=== PATIENT | male | born 1955 | race Caucasian/White ===

== ENCOUNTER 2017-12-06 22:29 | Inpatient (IN) | payer OTHER ==
[2017-12-07] MEDS ORDERED: ONDANSETRON 4 MG INJ IV (07:30)
[2017-12-07] MEDS ORDERED: ACETAMINOPHEN 325 MG TAB PO (07:30)
[2017-12-07] MEDS ORDERED: NACL 0.9% 3 ML SYG IV (07:30)
[2017-12-07] MEDS ORDERED: ZOLPIDEM 5 MG TAB PO (07:30)
[2017-12-07] MEDS: ASPIRIN (EC) 81 MG TAB PO (08:15)
[2017-12-07] MEDS: PANTOPRAZOLE (EC) 40 MG TAB PO (08:15)
[2017-12-07] MEDS: CLOPIDOGREL 75 MG TAB PO (08:15)
[2017-12-07] MEDS: FLUTICASONE 0.05% 16 GM NAS SPRAY NASAL ×2 (08:17→10:26)
[2017-12-07] MEDS ORDERED: NON-FORMULARY/PATIENT OWN MED (Omeprazole* 40 MG) PO (09:00)
[2017-12-07 09:02] LABS: ADD MAN DIFF? NO
[2017-12-07 09:09] LABS: WHITE BLOOD COUNT 10.8 10^3/ul (4.8-10.8)
[2017-12-07 09:09] LABS: BASOPHILS % 0.2 % (0.0-2.0); EOSINOPHILS # 0.1 10^3/ul (0.0-0.5); EOSINOPHILS % 0.7 % (0.0-7.0); HEMATOCRIT 41.6 % (42.0-52.0); LYMPHOCYTES # 1.4 10^3/ul (0.8-2.9); LYMPHOCYTES % 13.3 % (15.0-51.0); MEAN CORPUSCULAR HEMOGLOBIN 30.6 pg (29.0-33.0); MEAN CORPUSCULAR HGB CONC 33.7 g/dl (32.0-37.0); MEAN CORPUSCULAR VOLUME 90.8 fl (82.0-101.0); MEAN PLATELET VOLUME 9.8 fl (7.4-10.4); MONOCYTE # 0.9 10^3/ul (0.3-0.9); MONOCYTES % 8.1 % (0.0-11.0); NEUTROPHIL # 8.4 10^3/ul (1.6-7.5); NEUTROPHILS % 77.4 % (39.0-77.0); PLATELET COUNT 190 10^3/UL (140-415); RED BLOOD COUNT 4.58 10^6/ul (4.70-6.10); RED CELL DISTRIBUTION WIDTH 12.4 % (11.5-14.5)
[2017-12-07 09:29] LABS: ALANINE AMINOTRANSFERASE 35 IU/L (13-69); ALBUMIN 3.7 g/dl (3.3-4.9); ALBUMIN/GLOBULIN RATIO 1.27; ALKALINE PHOSPHATASE 111 IU/L (42-121); ANION GAP 11 (8-16); ASPARTATE AMINO TRANSFERASE 29 IU/L (15-46); BILIRUBIN,INDIRECT 0.6 mg/dl (0-1.1); BILIRUBIN,TOTAL 0.6 mg/dl (0.2-1.3); BLOOD UREA NITROGEN 19 mg/dl (7-20); CALCIUM 8.7 mg/dl (8.4-10.2); CARBON DIOXIDE 22 mmol/L (21-31); CHLORIDE 109 mmol/L (97-110); CREATININE 1.39 mg/dl (0.61-1.24); GLUCOSE 106 mg/dl (70-220); SODIUM 138 mmol/L (135-144); TOTAL PROTEIN 6.6 g/dl (6.1-8.1)
[2017-12-07] MEDS: MELOXICAM 7.5 MG TAB PO (10:12)
[2017-12-07] MEDS: HYDROCODONE/APAP (5/325) TAB PO (10:29)
[2017-12-07] MEDS: CEFTRIAXONE 1 GM/50 ML (PMX) 50 ML IVPB ×2 (12:14→21:04)
[2017-12-07 13:25] LABS: ADD UMIC YES; UR ASCORBIC ACID NEGATIVE (NEGATIVE); UR BILIRUBIN (Dip) NEGATIVE (NEGATIVE); UR BLOOD (Dip) 2+ mg/dL (NEGATIVE); UR CLARITY CLEAR (CLEAR); UR COLOR YELLOW (YELLOW); UR GLUCOSE (Dip) NEGATIVE (NEGATIVE); UR KETONES (Dip) NEGATIVE (NEGATIVE); UR LEUKOCYTE ESTERASE (Dip) NEGATIVE Leu/ul (NEGATIVE); UR NITRITE (Dip) NEGATIVE (NEGATIVE); UR RBC 29 /HPF (0-5); UR SPECIFIC GRAVITY (Dip) 1.014 (1.003-1.030); UR TOTAL PROTEIN (Dip) NEGATIVE (NEGATIVE); UR UROBILINOGEN (Dip) NEGATIVE (NEGATIVE); UR WBC 9 /HPF (0-5)
[2017-12-07] MEDS: BACLOFEN 10 MG TAB PO ×2 (14:02→21:05)
[2017-12-07] MEDS: NICOTINE (21 MG/24 HR) PATCH TRANSDERM (14:02)
[2017-12-07] MEDS: SOD CHLORIDE 0.9% 1,000 ML IV ×3 (14:05→20:00)
[2017-12-07] MEDS: HYDROmorphONE 1 MG/ML SYG IV (14:08)
[2017-12-07] MEDS: TAMSULOSIN (SR) 0.4 MG CAP PO (21:06)
[2017-12-07] MEDS: ATORVASTATIN 40 MG TAB PO (21:06)
[2017-12-08] MEDS: SOD CHLORIDE 0.9% 1,000 ML IV (01:04)
[2017-12-08] MEDS: HYDROCODONE/APAP (5/325) TAB PO (01:04)
[2017-12-08 05:23] LABS: ADD MAN DIFF? NO
[2017-12-08 05:24] LABS: BASOPHILS % 0.2 % (0.0-2.0); EOSINOPHILS # 0.2 10^3/ul (0.0-0.5); EOSINOPHILS % 2.4 % (0.0-7.0); HEMATOCRIT 37.4 % (42.0-52.0); HEMOGLOBIN 12.3 g/dl (14.0-18.0); LYMPHOCYTES # 2.4 10^3/ul (0.8-2.9); LYMPHOCYTES % 27.8 % (15.0-51.0); MEAN CORPUSCULAR HEMOGLOBIN 30.2 pg (29.0-33.0); MEAN CORPUSCULAR HGB CONC 32.9 g/dl (32.0-37.0); MEAN CORPUSCULAR VOLUME 91.9 fl (82.0-101.0); MEAN PLATELET VOLUME 10.1 fl (7.4-10.4); MONOCYTE # 0.8 10^3/ul (0.3-0.9); NEUTROPHIL # 5.2 10^3/ul (1.6-7.5); NEUTROPHILS % 60.4 % (39.0-77.0); PLATELET COUNT 170 10^3/UL (140-415); RED BLOOD COUNT 4.07 10^6/ul (4.70-6.10); RED CELL DISTRIBUTION WIDTH 12.6 % (11.5-14.5)
[2017-12-08 05:24] LABS: WHITE BLOOD COUNT 8.6 10^3/ul (4.8-10.8)
[2017-12-08] MEDS: PANTOPRAZOLE (EC) 40 MG TAB PO (06:00)
[2017-12-08 06:03] LABS: ALANINE AMINOTRANSFERASE 26 IU/L (13-69); ALBUMIN 3.2 g/dl (3.3-4.9); ALBUMIN/GLOBULIN RATIO 1.18; ALKALINE PHOSPHATASE 83 IU/L (42-121); ANION GAP 9 (8-16); ASPARTATE AMINO TRANSFERASE 24 IU/L (15-46); BILIRUBIN,INDIRECT 0.4 mg/dl (0-1.1); BILIRUBIN,TOTAL 0.4 mg/dl (0.2-1.3); BLOOD UREA NITROGEN 17 mg/dl (7-20); CALCIUM 8.7 mg/dl (8.4-10.2); CARBON DIOXIDE 26 mmol/L (21-31); CHLORIDE 110 mmol/L (97-110); CREATININE 1.23 mg/dl (0.61-1.24); GLUCOSE 97 mg/dl (70-220); MAGNESIUM 1.8 mg/dl (1.7-2.5); PHOSPHORUS 3.5 mg/dl (2.5-4.9); POTASSIUM 4.3 mmol/L (3.5-5.1); SODIUM 141 mmol/L (135-144); TOTAL PROTEIN 5.9 g/dl (6.1-8.1)
[2017-12-08] MEDS: CEFTRIAXONE 1 GM/50 ML (PMX) 50 ML IVPB (09:08)
[2017-12-08] MEDS: BACLOFEN 10 MG TAB PO ×2 (09:08→13:12)
[2017-12-08] MEDS: CLOPIDOGREL 75 MG TAB PO (09:08)
[2017-12-08] MEDS: ASPIRIN (EC) 81 MG TAB PO (09:08)
[2017-12-08] MEDS: NICOTINE (21 MG/24 HR) PATCH TRANSDERM (09:09)
== END 2017-12-08 14:53 | disposition home or self-care (01) | DRG 694 ==
LOC: MS1 22:29
DX: N13.2 Hydronephrosis with renal and ureteral calculous obstruction (principal); I25.10 Atherosclerotic heart disease of native coronary artery without angina pectoris; Z95.1 Presence of aortocoronary bypass graft; I10 Essential (primary) hypertension; F17.200 Nicotine dependence, unspecified, uncomplicated; E78.5 Hyperlipidemia, unspecified
CPT/HCPCS: 74018; 80053; 81001; 83735; 84100; 85025; 87086